=== PATIENT | male | born 1995 | race Caucasian/White ===

== ENCOUNTER 2018-01-20 11:22 | Emergency (ER) | payer BC ==
[~2018-01-20] VITALS: Ht 190.5 cm; Wt 129.6 kg
[2018-01-20 11:32] VITALS: BP 130/82
[2018-01-20] MEDS ORDERED: NAPR500T6 PO (12:36)
[2018-01-20] MEDS ORDERED: TRAM50TA2 PO (12:36)
== END 2018-01-20 12:53 | disposition home or self-care (01) ==
LOC: ER 11:23
DX: S93.402A Sprain of unspecified ligament of left ankle, initial encounter (principal); X58.XXXA Exposure to other specified factors, initial encounter; Y93.89 Activity, other specified; Y92.89 Other specified places as the place of occurrence of the external cause; Y99.8 Other external cause status
CPT/HCPCS: 73610; 99284; L4360